=== PATIENT | male | born 1970 | race Two or more races ===

== ENCOUNTER 2019-07-17 22:54 | Emergency (ER) | payer SELFPAY ==
[~2019-07-17] VITALS: Ht 180.3 cm; Wt 113.4 kg
[2019-07-17 23:11] VITALS: BP 132/85
== END 2019-07-18 04:42 | disposition left against medical advice (07) ==
LOC: ER 22:54
DX: M70.32 Other bursitis of elbow, left elbow (principal); E11.9 Type 2 diabetes mellitus without complications
CPT/HCPCS: 73080

== ENCOUNTER → 2020-06-25 | Emergency (ER) | payer SELFPAY ==
[~2020-06-25] VITALS: Ht 154.9 cm; Wt 117.9 kg
[2020-06-25 03:08] VITALS: BP 134/79
== END | disposition home or self-care (01) ==
LOC: ER 02:43
DX: K05.319 Chronic periodontitis, localized, unspecified severity (principal); R22.1 Localized swelling, mass and lump, neck